=== PATIENT | male | born 1950 | race Caucasian/White ===

== ENCOUNTER → 2021-07-16 | Outpatient (CLI) | payer MEDICARE ==
[2021-07-16 14:03] LABS: BUN/CREATININE RATIO 18 (0-10)
== END ==
LOC: LAB 12:10
PROVIDERS: Physician Assistant
DX: E78.5 Hyperlipidemia, unspecified (principal); I25.10 Atherosclerotic heart disease of native coronary artery without angina pectoris
CPT/HCPCS: 36415; 80053; 80061